=== PATIENT | male | born 1970 ===

== ENCOUNTER → 2021-06-24 | Emergency (ER) | payer BC ==
[~2021-06-24] VITALS: Ht 185.4 cm; Wt 102.5 kg
== END | disposition home or self-care (01) ==
LOC: ER 11:57
DX: L03.317 Cellulitis of buttock (principal); B95.61 Methicillin susceptible Staphylococcus aureus infection as the cause of diseases classified elsewhere; L02.31 Cutaneous abscess of buttock; Z03.818 Encounter for observation for suspected exposure to other biological agents ruled out